=== PATIENT | female | born 1970 | race Caucasian/White ===

== ENCOUNTER 2016-05-17 07:41 | Emergency (ER) | payer OTHER ==
[2016-05-17 08:27] LABS: BASOPHILS % (AUTO) 1 % (0-3); EOSINOPHILS % (AUTO) 2 % (0-9); HEMATOCRIT 41 % (35-47); MEAN CORPUSCULAR HGB CONC 34.2 gm/dl (32.0-36.0); MEAN CORPUSCULAR VOLUME 85 fL (81-99); MONOCYTES % (AUTO) 6.2 % (0-12); NEUTROPHILS % (AUTO) 70.8 % (37-80)
[2016-05-17 08:28] VITALS: BP 155/91; PULSE 88; RESP 16; TEMP 98; O2SAT 97
[2016-05-17 08:35] LABS: CALCIUM 8.6 mg/dl (8.5-10.1); POTASSIUM 3.9 mMol/L (3.5-5.1)
[2016-05-17] MEDS: KETOROLAC TROMETHAMINE 30 MG/ML SOL IM ONE (08:57)
[2016-05-17] MEDS ORDERED: KETOROLAC TROMETHAMINE 30 MG/ML SOL ONE (08:58)
== END 2016-05-17 10:10 | disposition home or self-care (01) ==
LOC: ED 07:41
DX: J06.9 Acute upper respiratory infection, unspecified (principal)
CPT/HCPCS: 99283 ×3; 71020; 80048; 85025; 87430; J1885; 36415; 96372